=== PATIENT | female | born 1955 | race Caucasian/White ===

== ENCOUNTER 2020-04-21 19:49 | Emergency (ER) | payer OTHER ==
[~2020-04-21] VITALS: Ht 170.2 cm; Wt 90.7 kg
[~2020-04-21 19:49] MED LIST: APAP500; CIPROFLOXACIN500 M1 PO; FLEXERIL PO; IBUPROFEN 600600 M1 PO
[2020-04-21 21:59] LABS: ABSOLUTE NEUTROPHILS 2.8 thou/uL (1.4-8.2); EOSINOPHILS 2.3 % (0.0-3.0); HEMATOCRIT 39.2 % (37.0-47.0); HEMOGLOBIN 12.8 gm/dL (12.0-15.0); LYMPHOCYTES 40.4 % (24.0-44.0); MCHC 32.7 g/dL (28.0-37.0); MCV 82.3 fL (80.0-100.0); MONOCYTES 6.5 % (1.0-8.0); PLATELET COUNT 286 thou/uL (150-400); POLYS 49.8 % (36.0-66.0); RBC 4.77 mil/uL (4.20-5.00); RDW 15.8 % (10.5-14.5); WBC 5.6 thou/uL (4.0-11.0)
[2020-04-21 22:09] LABS: CALCIUM 9.3 mg/dL (8.5-10.1); POTASSIUM 3.3 mmol/L (3.5-5.1)
[2020-04-21 22:16] LABS: DIRECT BILIRUBIN 0.1 mg/dL (<0.1-0.2); TOTAL BILIRUBIN 0.5 mg/dL (0.2-1.0); TOTAL PROTEIN 8.2 g/dL (6.4-8.2)
[2020-04-21] MEDS ORDERED: IMODIUM A-D2 MG PO (23:07)
[2020-04-21] MEDS ORDERED: ZOFRAN ODT4 MG PO (23:49)
[2020-04-22 00:18] VITALS: BP 134/87
--- NOTE | 2020-04-22 08:14 | EKG ---
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
== END 2020-04-22 00:11 | disposition home or self-care (01) ==
LOC: ER 19:49
PROVIDERS: Emergency Medicine
DX: U07.1 COVID-19 (principal); R19.7 Diarrhea, unspecified; E66.9 Obesity, unspecified; E78.00 Pure hypercholesterolemia, unspecified; Z98.890 Other specified postprocedural states; Z79.899 Other long term (current) drug therapy; Z88.1 Allergy status to other antibiotic agents; Z88.0 Allergy status to penicillin; Z68.31 Body mass index [BMI] 31.0-31.9, adult